=== PATIENT | male | born 1935 | race Caucasian/White ===

== ENCOUNTER 2020-11-14 05:05 | Observation (INO) | payer MEDICARE ==
[~2020-11-14] VITALS: Ht 175.3 cm; Wt 95.3 kg
[~2020-11-14 05:05] MED LIST: ALPRAZOLAM0.5 MG PO; AMLODIPINE BESY10 MG PO; ASPIRIN325 MG PO; LEVOTHYROXINE50 MCG PO; LIPITOR TAB 2020 MG PO; LOPRESSOR 25 MG25 MG PO; NEURONTIN 300300 MG PO; NITROGLYCE20 MG/1 GM TOP; PRILOSEC OTC20 MG PO; TYLENOL W/CODEIN1 E1 PO
[2020-11-14 05:17] LABS: HEMOGLOBIN 11.8 gm/dl (14.0-17.5); RED BLOOD COUNT 3.85 M/UL (4.20-5.50); WHITE BLOOD COUNT 5.2 K/UL (4.5-11.0)
[2020-11-14 06:07] LABS: BUN/CREATININE RATIO 12 (0-10)
[2020-11-14] MEDS ORDERED: SYNTHROID75 MCG PO (09:25)
[2020-11-14] MEDS ORDERED: NORVASC10 MG PO (09:29)
[2020-11-14] MEDS ORDERED: PEPCID20 MG PO (09:31)
[2020-11-14] MEDS ORDERED: ACETAMINOPHEN-1 EAC1 PO (09:31)
[2020-11-14] MEDS ORDERED: LOPRESSOR 50 MG50 MG PO (09:32)
[2020-11-14] MEDS ORDERED: XANAX 0.25 MG0.25 MG PO (09:32)
[2020-11-14] MEDS ORDERED: ZANAFLEX4 MG PO (09:33)
[2020-11-14] MEDS ORDERED: ZESTORETIC 20-1 EACH PO (09:33)
[2020-11-14] MEDS ORDERED: PREDFORTE OP SUS5 ML OU (09:36)
[2020-11-14] MEDS ORDERED: ASPIRIN EC81 MG PO (09:37)
[2020-11-14] MEDS ORDERED: FISH OIL 1,2001 EAC1 PO (09:38)
[2020-11-15 05:17] LABS: HEMOGLOBIN 11.4 gm/dl (14.0-17.5); RED BLOOD COUNT 3.76 M/UL (4.20-5.50)
[2020-11-15] MEDS ORDERED: HYDRALAZINE HCL25 MG PO (09:39)
== END 2020-11-15 11:39 | disposition home or self-care (01) ==
LOC: ER1 05:05 → CDU 06:45 → PROG CARE 06:45
PROVIDERS: Emergency Medicine; Physician Assistant Medical; ADMIT Internal Medicine
DX: R00.1 Bradycardia, unspecified (principal); R00.8 Other abnormalities of heart beat; I08.0 Rheumatic disorders of both mitral and aortic valves; R42 Dizziness and giddiness; R55 Syncope and collapse; I11.9 Hypertensive heart disease without heart failure; N19 Unspecified kidney failure; R94.31 Abnormal electrocardiogram [ECG] [EKG]; R91.8 Other nonspecific abnormal finding of lung field; E87.5 Hyperkalemia; Z79.899 Other long term (current) drug therapy; Z20.822 Contact with and (suspected) exposure to COVID-19; Z98.49 Cataract extraction status, unspecified eye
CPT/HCPCS: ECHO; 36415; 71045; 80048; 80053; 82550; 82553; 83735; 83874; 83880; 84439; 84443; 84484; 85025; 85027; 93005; 93270; 93306; 99285; G0378; J7030; U0002

== ENCOUNTER 2021-06-23 01:21 | Emergency (ER) | payer MEDICARE ==
[~2021-06-23 01:21] MED LIST changes: +ACETAMINOPHEN-1 EAC1 PO; +ASPIRIN EC81 MG PO; +FISH OIL 1,2001 EAC1 PO; +HYDRALAZINE HCL25 MG PO; +LOPRESSOR 50 MG50 MG PO; +NORVASC10 MG PO; +PEPCID20 MG PO; +PREDFORTE OP SUS5 ML OU; +SYNTHROID75 MCG PO; +XANAX 0.25 MG0.25 MG PO; +ZANAFLEX4 MG PO; +ZESTORETIC 20-1 EACH PO
== END 2021-06-23 03:44 | disposition expired ==
LOC: ER1 01:21
DX: I46.9 Cardiac arrest, cause unspecified (principal); I12.9 Hypertensive chronic kidney disease with stage 1 through stage 4 chronic kidney disease, or unspecified chronic kidney disease; N18.9 Chronic kidney disease, unspecified; Z20.822 Contact with and (suspected) exposure to COVID-19
CPT/HCPCS: 99285; U0002